=== PATIENT | male | born 1980 | race Caucasian/White ===

== ENCOUNTER 2020-09-25 16:33 | Outpatient (CLI) | payer BC | END 2020-09-25 16:34 | disposition home or self-care (01) | LOC: COV 16:33 | PROVIDERS: ATTEND Family Medicine | DX: Z20.828 Contact with and (suspected) exposure to other viral communicable diseases (principal) ==

== ENCOUNTER 2020-12-01 10:23 | Outpatient (CLI) | payer BC ==
[2020-12-01 15:05] LABS: BASOPHILS # (AUTO) 0.1 10^3/uL (0.0-0.1); BASOPHILS % (AUTO) 1.1 %; EOSINOPHILS # (AUTO) 0.1 10^3/uL (0.0-0.7); EOSINOPHILS % (AUTO) 1.1 %; HCT - HEMATOCRIT 46.8 % (42.0-52.0); HGB - HEMOGLOBIN 15.3 g/dL (14.0-18.0); LYMPHOCYTES # (AUTO) 1.4 10^3/uL (1.5-3.5); MEAN CORPUSCULAR HEMOGLOBIN 31.7 pg (27.0-31.0); MEAN CORPUSCULAR HGB CONC 32.7 g/dL (32.0-36.0); MEAN CORPUSCULAR VOLUME 96.9 fL (80.0-94.0); MEAN PLATELET VOLUME 9.9 fL (7.4-11.4); MONOCYTES # (AUTO) 0.5 10^3/uL (0.0-1.0); MONOCYTES % (AUTO) 10.8 %; NEUTROPHILS # (AUTO) 2.6 10^3/uL (1.5-6.6); NEUTROPHILS % (AUTO) 55.8 %; PLT - PLATELET COUNT 228 10^3/uL (130-450); RED BLOOD COUNT 4.83 10^6/uL (4.70-6.10); RED CELL DISTRIBUTION WIDTH 12.2 % (12.0-15.0); WHITE BLOOD COUNT 4.6 x10^3/uL (4.8-10.8)
[2020-12-01 15:28] LABS: ALBUMIN/GLOBULIN RATIO 1.7 (1.0-2.2); ALKALINE PHOSPHATASE 42 IU/L (42-121); ALT ALANINE AMINOTRANSFERASE 44 IU/L (10-60); AST ASPARTATE AMINOTRANSFERASE 34 IU/L (10-42); BILIRUBIN,TOTAL 1.2 mg/dL (0.2-1.0); BUN - BLOOD UREA NITROGEN 11 mg/dL (6-20); CALCIUM 9.7 mg/dL (8.5-10.3); CARBON DIOXIDE - CO2 27 mmol/L (21-32); CHLORIDE 97 mmol/L (101-111); CHOL/HDL RATIO 2.4 (<5.0); CHOLESTEROL 245 mg/dL; CREATININE 0.7 mg/dL (0.6-1.2); GFR - MDRD 124 (>89); GLUCOSE 97 mg/dL (70-100); HDL CHOLESTEROL 102 mg/dL; LDL CHOLESTEROL,CALCULATED 131 mg/dL; LDL/HDL RATIO 1.3 (<3.6); POTASSIUM 4.2 mmol/L (3.5-5.0); SODIUM 135 mmol/L (135-145); TOTAL PROTEIN 7.9 g/dL (6.7-8.2); TRIGLYCERIDES 60 mg/dL; VLDL CHOLESTEROL 12 mg/dL
[2020-12-01 16:22] LABS: THYROID STIMULATING HORMONE 1.91 uIU/mL (0.34-5.60)
== END 2020-12-01 10:24 | disposition home or self-care (01) ==
LOC: LAB.S 10:23
PROVIDERS: ATTEND Registered Nurse
DX: I10 Essential (primary) hypertension (principal)
CPT/HCPCS: 36415; 80053; 80061; 83721; 84443; 85025

== ENCOUNTER 2022-06-27 08:00 | Outpatient (CLI) | payer OTHER | END 2022-06-27 23:59 | disposition home or self-care (01) | LOC: LAB.N 08:00 | PROVIDERS: ATTEND Nurse Practitioner | DX: B02.9 Zoster without complications (principal) | CPT/HCPCS: 87252 ==

== ENCOUNTER 2022-10-17 14:08 | Outpatient (CLI) | payer OTHER ==
--- NOTE | 2022-10-17 16:51 | Ultrasound Report ---
PROCEDURE: Testicle INDICATIONS: INFLAMMATION OF VAS DEFERENS TECHNIQUE: Real-time scanning was performed of the scrotum and testicles, with image documentation. Color and p ulse Doppler interrogation was performed of both testicles. COMPARISON: None. FINDINGS: Right: Testicle is normal in size at 4.9 x 2.3 x 2.6 cm, and homogenous in echotexture. Epididymis is normal in overall size and morphology. No hydrocele or varicoceles. Overlying scrotal skin is no rmal in thickness. Left: Testicle is normal in size at 4.4 x 2.2 x 2.8 cm, and homogeneous in echotexture. Epididymis is normal in overall size and morphology. No hydrocele or varicoceles. Overlying scrotal skin is no rmal in thickness. Doppler: Color and pulse Doppler demonstrate normal and symmetric arterial flow in both testicles. IMPRESSION: No sonographic evidence of torsion or hyperemia to indicate acute inflammation. Reviewed by: Kian Loya MD on 10/17/2022 4:50 PM PST Approved by: Kian Loya MD on 10/17/2022 4:50 PM PST Station ID: [id number]
== END 2022-10-17 14:09 | disposition home or self-care (01) ==
LOC: DI 14:08
PROVIDERS: ATTEND Nurse Practitioner
DX: N49.1 Inflammatory disorders of spermatic cord, tunica vaginalis and vas deferens (principal)

== ENCOUNTER 2023-09-26 19:35 | Outpatient (CLI) | payer OTHER | END 2023-09-26 19:36 | disposition critical access hospital (66) | LOC: EMS 19:35 | DX: R42 Dizziness and giddiness (principal); R55 Syncope and collapse; R61 Generalized hyperhidrosis | CPT/HCPCS: A0425; A0429 ==

== ENCOUNTER 2023-09-26 19:52 | Emergency (ER) | payer OTHER ==
--- NOTE | 2023-09-26 20:14 | ED Physician Documentation ---
PD HPI SYNCOPE - Stated complaint Stated Complaint: SYNCOPE - Chief complaint Chief Complaint: General - History obtained from History obtained from: Patient, Family - History of Present Illness Witnessed: Witnessed - Additional information Additional information: HPI from patient as well as from patient's spouse is in ED at the patient's bedside. EMS also contributes to HPI. Patient says "I passed out tonight". Patient was at home eating dinner. When, approximately the 6 PM tonight, he experienced rapid onset of generalized weakness, did not peripheral vision. He says he then woke up on the floor. He says he is now asymptomatic. He denies having had any chest pain, shortness of breath. was also eating dinner and she asked patient about plans for tomorrow when his eyes "rolled up in his head" (per ). She says he appeared to go limp in his chair and was not responding. She says after approximately 30 seconds, during which he exhibited occasional, non-rhythmic twitching of his limbs, he suddenly stared directly at her, seem to make eye contact. She noted that he was very pale and diaphoretic. However, before he responded to any commands or spoke, he then fell off of the chair onto the floor. She went over to the patient who was now facedown on the floor. Per her CPR training, she turned the patient onto his side. She says within 30 to 60 seconds, he began to respond, eventually even sitting up against the wall approximately 2 to 3 minutes after having fallen to the floor. However, upon sitting up against the wall, he had a third such episode which again lasted only 30 seconds. Patient denies headache, chest pain, weakness (resolved), numbness, visual changes (resolved). Patient says he has been drinking more fluids than usual today because, since yesterday, he has been having chills and sweats, occasional nonproductive cough, generalized myalgias; patient says he suspects he has "the flu". EMS notes that patient's BP was 112/50 supine but 80/50 sitting up with pulse 50 sitting up. Review of Systems Constitutional: reports: Chills, Myalgias, Sweats, Other (has not taken temperature at home) Cardiac: reports: Reviewed and negative Respiratory: reports: Cough (occasional, nonproductive). denies: Dyspnea GI: reports: Reviewed and negative : denies: Incontinent Musculoskeletal: reports: Reviewed and negative Neurologic: reports: Generalized weakness (resolved), Syncope, LOC. denies: Focal weakness, Numbness, Seizure, Headache, Head injury PD PAST MEDICAL HISTORY - Past Medical History Past Medical History: Yes Cardiovascular: Hypertension - Past Surgical History Past Surgical History: No - Present Medications Home Medications: Ambulatory Orders Medication Instructions Recorded Confirmed Lisinopril [Zestril] 10 mg PO DAILY 09/26/23 09/26/23 - Allergies Allergies/Adverse Reactions: Allergies Allergy/AdvReac Type Severity Reaction Status Date / Time No Known Drug Allergies Allergy Verified 09/26/23 20:49 - Social History Does the pt smoke?: No Smoking Status: Never smoker Does the pt drink ETOH?: Yes Does the pt have substance abuse?: No - Immunizations Immunizations are current?: Yes PD ED PE NORMAL - Vitals Vital signs reviewed: Yes - General General: Alert and oriented X 3, No acute distress, Well developed/nourished - HEENT HEENT: Atraumatic, PERRL, EOMI, Moist mucous membranes - Neck Neck: Supple, no meningeal sign - Cardiac Cardiac: RRR, No murmur, No gallop, No rub - Respiratory Respiratory: No respiratory distress, Clear bilaterally - Abdomen Abdomen: Soft, Non tender - Neuro Neuro: Alert and oriented X 3, steam and power superintendent 2-12 intact, No motor deficit, No sensory def icit, Normal speech Eye Opening: Spontaneous Motor: Obeys Commands Verbal: Oriented GCS Score: 15 - Psych Psych: Normal mood, Normal affect Results - Vitals Vitals: Vital Signs - 24 hr 09/26/23 21:00 Heart Rate 77 Respiratory 19 Rate Blood Pressure 113/81 H O2 Saturation 97 Oxygen O2 Source Room air - EKG (time done) No standard instances EKG releavant findings:: EKG personally interpreted by author of this note. Relevant findings are: Rate: Rate (enter#) (77) Rhythm: NSR [place]: Normal Intervals: Normal ME QRS: Normal Ischemia: Normal ST segments - Labs Labs: Laboratory Tests 09/26/23 09/26/23 09/26/23 20:55 21:04 21:04 WBC 7.9 RBC 4.75 Hgb 14.7 Hct 44.7 MCV 94.1 H MCH 30.9 MCHC 32.9 RDW 12.2 Plt Count 200 MPV 9.3 Neut # (Auto) 6.0 Lymph # (Auto) 1.0 L [place] # (Auto) 0.8 Eos # (Auto) 0.1 Baso # (Auto) 0.1 Absolute Nucleated RBC 0.00 Nucleated RBC % 0.0 Sodium 138 Potassium 4.1 Chloride 101 Carbon Dioxide 31 Anion Gap 6.0 BUN 10 Creatinine 0.9 Estimated GFR (MDRD) 91 Glucose 118 H Calcium 9.3 Total Bilirubin 0.3 AST 18 ALT 18 Alkaline Phosphatase 39 L Troponin I High Sens Total Protein 6.9 Albumin 4.5 Globulin 2.4 Albumin/Globulin Ratio 1.9 Lipase 16 Nasal Adenovirus (PCR) NOT DETECTED Nasal B. parapertussis DNA (PCR) NOT DETECTED Nasal Coronavir 229E PCR NOT DETECTED Nasal Coronavir HKU1 PCR NOT DETECTED Nasal Coronavir NL63 PCR NOT DETECTED Nasal Coronavir OC43 PCR NOT DETECTED Nasal Enterovir/Rhinovir PCR NOT DETECTED Nasal Influenza B PCR NOT DETECTED Nasal Influenza A PCR NOT DETECTED Nasal Parainfluen 1 PCR NOT DETECTED Nasal Parainfluen 2 PCR NOT DETECTED Nasal Parainfluen 3 PCR NOT DETECTED Nasal Parainfluen 4 PCR NOT DETECTED Nasal RSV (PCR) NOT DETECTED Nasal B.pertussis DNA PCR NOT DETECTED Nasal C.pneumoniae (PCR) NOT DETECTED [place] Human Metapneumo PCR NOT DETECTED Nasal M.pneumoniae (PCR) NOT DETECTED Nasal SARS-CoV-2 (PCR) DETECTED A 09/26/23 21:04 WBC RBC Hgb Hct MCV MCH MCHC RDW Plt Count MPV Neut # (Auto) Lymph # (Auto) [place] # (Auto) Eos # (Auto) Baso # (Auto) Absolute Nucleated RBC Nucleated RBC % Sodium Potassium Chloride Carbon Dioxide Anion Gap BUN Creatinine Estimated GFR (MDRD) Glucose Calcium Total Bilirubin AST ALT Alkaline Phosphatase Troponin I High Sens 2.6 Total Protein Albumin Globulin Albumin/Globulin Ratio Lipase Nasal Adenovirus (PCR) Nasal B. parapertussis DNA (PCR) Nasal Coronavir 229E PCR Nasal Coronavir HKU1 PCR Nasal Coronavir NL63 PCR Nasal Coronavir OC43 PCR Nasal Enterovir/Rhinovir PCR Nasal Influenza B PCR Nasal Influenza A PCR Nasal Parainfluen 1 PCR Nasal Parainfluen 2 PCR Nasal Parainfluen 3 PCR Nasal Parainfluen 4 PCR Nasal RSV (PCR) Nasal B.pertussis DNA PCR Nasal C.pneumoniae (PCR) [place] Metapneumo PCR Nasal M.pneumoniae (PCR) Nasal SARS-CoV-2 (PCR) - Rads (name of study) chest xray Relevant Findings:: Prelim report reviewed, See rad report PD Medical Decision Making - ED course Complexity details: reviewed results, re-evaluated patient, considered differential, d/w patient ED course: Presents due to syncopal episodes, likely due to hypotension although the etiology of such hypotension remains unclear at this time. One possible explanation is that he has been fighting off what sounds like a viral URI since yesterday, although he also notes that he has upped his p.o. fluids today to try to counter potential dehydration. Nonetheless, at this time, his test results including EKG, chest x-ray, and blood tests which includes a high-sensitivity troponin marker, are all unremarkable and reassuring. He is given 1 L normal saline IV during ED stay. Patient says that when the chest x-ray was taken, he was asymptomatic when he sat up and then subsequently stood up. Respiratory PCR panel is positive for COVID. I discussed all results including the COVID results with the patient. He does not have any risk factors for progression to severe disease, but I did offer him Paxlovid and he declines this medication. His heart rate and blood pressures are within normal limits during the ED stay and he is asymptomatic throughout. Results discussed with patient, return precautions reviewed. Departure - Departure Disposition: 01 Home, Self Care Clinical Impression: COVID-19 Syncope Qualifiers: Syncope type: unspecified Qualified Code(s): R55 - Syncope and collapse Condition: Good Instructions: ED Fainting Unkn Cause, ED Viral Syndrome Follow-Up: Rochelle Seth ARNP [Primary Care Provider] - Comments: You tested positive for COVID tonight. Very likely explains the viral-type symptoms you have been experiencing for the past 1 or 2 days. I also suspect that this might have led to some degree of dehydration, which, in turn, caused or at least contributed to the episode of syncope (fainting) tonight. As we discussed, the results of tonight's tests including EKG, chest x-ray, and blood tests are all very reassuring and do not indicate a dangerous cause of the syncope. Nonetheless, these tests do not entirely rule out such causes. You should follow-up with your primary care provider within the next few weeks for reevaluation. Google "CDC isolation" and then click on the link to "Isolation and Precautions for People with COVID-19 - CDC". This will have useful information for you as well as household contacts. There is a calculator on the page that will determine when you can end isolation. Forms: PCP List Discharge Date/Time: 09/26/23 21:00
[2023-09-26] MEDS ORDERED: SODIUM CHLORIDE 0.9% 1,000 ML IV STA (20:52)
[2023-09-26 21:10] VITALS: BP 113/81; O2SAT 97
[2023-09-26 21:10] LABS: BASOPHILS # (AUTO) 0.1 10^3/uL (0.0-0.1); BASOPHILS % (AUTO) 0.8 %; EOSINOPHILS # (AUTO) 0.1 10^3/uL (0.0-0.7); EOSINOPHILS % (AUTO) 0.9 %; HCT - HEMATOCRIT 44.7 % (42.0-52.0); HGB - HEMOGLOBIN 14.7 g/dL (14.0-18.0); LYMPHOCYTES % (AUTO) 12.4 %; MEAN CORPUSCULAR HEMOGLOBIN 30.9 pg (27.0-31.0); MEAN CORPUSCULAR HGB CONC 32.9 g/dL (32.0-36.0); MEAN CORPUSCULAR VOLUME 94.1 fL (80.0-94.0); MEAN PLATELET VOLUME 9.3 fL (7.4-11.4); MONOCYTES # (AUTO) 0.8 10^3/uL (0.0-1.0); MONOCYTES % (AUTO) 10.5 %; PLT - PLATELET COUNT 200 10^3/uL (130-450); RED BLOOD COUNT 4.75 10^6/uL (4.70-6.10); RED CELL DISTRIBUTION WIDTH 12.2 % (12.0-15.0); WHITE BLOOD COUNT 7.9 x10^3/uL (4.8-10.8)
--- NOTE | 2023-09-26 21:25 | XRAY Report ---
PROCEDURE: Chest 2V INDICATIONS: syncope TECHNIQUE: 2 views of the chest were acquired. COMPARISON: None. FINDINGS: Surgical changes and devices: None. Lungs and pleura: No pleural effusions or pneumothorax. Lungs are clear. Mediastinum: Mediastinal contours appear normal. Heart size is normal. Bones and chest wall: No suspicious bony lesions. Overlying soft tissues appear unremarkable. IMPRESSION: No acute cardiopulmonary process. Reviewed by: Taylor Rojas MD on 09/26/2023 9:24 PM PST Approved by: Taylor Rojas MD on 09/26/2023 9:24 PM [facility] Station ID: [id number]
[2023-09-26 21:30] LABS: ALBUMIN 4.5 g/dL (3.2-5.5); ALBUMIN/GLOBULIN RATIO 1.9 (1.0-2.2); BILIRUBIN,TOTAL 0.3 mg/dL (0.2-1.0); CALCIUM 9.3 mg/dL (8.5-10.3); CREATININE 0.9 mg/dL (0.6-1.3); POTASSIUM 4.1 mmol/L (3.5-4.5); TOTAL PROTEIN 6.9 g/dL (6.4-8.9)
[2023-09-26 21:51] LABS: B. PARAPERTUSSIS- RESP PCR PAN NOT DETECTED; B. PERTUSSIS- RESP PCR PANEL NOT DETECTED; C. PNEUMONIAE- RESP PCR PANEL NOT DETECTED; CORONAVIRUS 229E-RESP PCR NOT DETECTED; CORONAVIRUS HKU1-RESP PCR NOT DETECTED; CORONAVIRUS NL63-RESP PCR NOT DETECTED; CORONAVIRUS OC43-RESP PCR NOT DETECTED; HUMAN METAPNEUMOVIRUS NOT DETECTED; INFLUENZA A- RESP PCR PANEL NOT DETECTED; INFLUENZA B - RESP PCR PANEL NOT DETECTED; M. PNEUMONIAE- RESP PCR PANEL NOT DETECTED; PARAINFLUENZA VIRUS 1 NOT DETECTED; PARAINFLUENZA VIRUS 2 NOT DETECTED; PARAINFLUENZA VIRUS 3 NOT DETECTED; PARAINFLUENZA VIRUS 4 NOT DETECTED; RHINOVIRUS/ENTEROVIRUS NOT DETECTED; RSV- RESP PCR PANEL NOT DETECTED; SARS-CoV-2 -RESP PCR PANEL DETECTED
== END 2023-09-26 21:00 | disposition home or self-care (01) ==
LOC: EDUNIT# → ED 19:52
DX: R55 Syncope and collapse (principal); U07.1 COVID-19
CPT/HCPCS: 36415; 80053; 83690; 84484; 85025; 87633; 93005; 99283; 99284